=== PATIENT | female | born 1980 ===

== ENCOUNTER 2020-07-29 13:35 | Day surgery (SDC) | payer OTHER ==
[~2020-07-29 13:35] MED LIST: GLIMEPIRIDE1 MG
== END 2020-07-29 18:00 | disposition home or self-care (01) ==
LOC: CIR.AMB 13:35
PROVIDERS: ATTEND Obstetrics & Gynecology Obstetrics
DX: N93.8 Other specified abnormal uterine and vaginal bleeding (principal)

== ENCOUNTER 2020-10-12 07:30 | Inpatient (IN) | payer OTHER ==
[~2020-10-12] VITALS: Ht 167.6 cm; Wt 57.6 kg
[~2020-10-12 07:30] MED LIST changes: -GLIMEPIRIDE1 MG; +GLIMEPIRIDE1 MG PO
== END 2020-10-22 15:17 | disposition home or self-care (01) | DRG 743 ==
LOC: OB/GYN 10-19 07:30 → O/R 10-19 11:00 → OB/GYN 10-19 11:00
PROVIDERS: ADMIT Obstetrics & Gynecology Obstetrics; ATTEND Obstetrics & Gynecology Obstetrics
PROC: 0UT90ZZ Resection of Uterus, Open Approach (ICD-10-PCS; principal; 2020-10-20)
DX: N72 Inflammatory disease of cervix uteri (principal); N84.0 Polyp of corpus uteri; D25.9 Leiomyoma of uterus, unspecified; N83.8 Other noninflammatory disorders of ovary, fallopian tube and broad ligament